=== PATIENT | male | born 1990 | race Caucasian/White ===

== ENCOUNTER 2018-01-17 06:47 | Emergency (ER) | payer OTHER ==
--- NOTE | 2018-01-17 06:56 | EDPHY ---
HPI/HX/ROS/PE/MDM Narrative: CHIEF COMPLAINT: Syncope HISTORY OF PRESENT ILLNESS: The patient is a 27 y/o male arriving via EMS after being found lying in his bathroom following a syncopal episode. Several weeks ago he had an episode of feeling lightheaded, but symptoms improved after eating food. Last night he became lightheaded; he drank some juice, but became sweaty, nauseated, and thought he would pass out. When he went to take a shower this morning, he became nauseous and felt like he might faint. He got out of the shower and sat on the toilet. He did have a syncopal episode. His fiance heard him fall, and believes the patient hit his head upon collapsing. Per his fiance, it took 3 -4 minutes before he "came to" and woke up. It then took around 30 seconds before he was able to talk again. Denies biting his tongue or losing control of his bowels. He is currently feeling "slow", shaky, and thirsty. His father has a history of an aortic dissection in his 50's. Denies tobacco, marijuana, or illicit drug use. No headache, neck pain. No chest pain, SOB, palpitations. No hx of marfans. No fever, chills, vomiting, diarrhea, urinary complaints. REVIEW OF SYSTEMS: Aside from elements discussed in the HPI, a comprehensive 10-point review of systems was reviewed and is negative. PAST MEDICAL HISTORY: Asthma SOCIAL HISTORY: Fiance at bedside, works with horses, lives in [place] VITAL SIGNS: Reviewed by me GENERAL: Well-developed, well-nourished, resting comfortably in no respiratory distress. HEENT: Contusion to forehead and left cheek. Eyes: No icterus, no injection. Mouth: dry mucous membranes. No erythema or lesions. Neck: supple with no adenopathy. LUNGS: Clear to auscultation bilaterally, no wheezes, rhonchi or rales. CARDIAC: Regular rate and rhythm, no rubs, murmurs or gallops. ABDOMEN: Soft, nontender, nondistended, bowel sounds normal. BACK: No CVA tenderness. EXTREMITIES: Abrasion to left axilla. No edema. Range of motion is normal throughout. NEURO: Alert and oriented, grossly nonfocal. SKIN: Warm and dry, no rash. PSYCHIATRIC: Normal mentation, no agitation. Portions of this note were transcribed by a ophthalmic medical technician. I personally performed a history, physical exam, medical decision making, and confirmed accuracy of information the transcribed note. ED Course: The patient is a 27 y/o male arriving via EMS after being found lying in his bathroom following a syncopal episode this morning. On exam he has a contusion to his forehead and left cheek, as well as an abrasion to his left axilla. Labs , EKG, and chest x-ray ordered; 1L IV NS administered. Patient alert, 0x3. Minor mechanism of injury. Does not meet criteria for CT scan of head. 0727: 12-LEAD EKG: Please see the full report in [facility]. My interpretation: Normal sinus rhythm with a rate of 51. 0851: Patient's labs and imaging findings are normal. Orthostatic vital signs ordered. 0857: Patient has negative orthostatics, although he is mildly hypertensive. 0912: Reassessed patient and discussed laboratory and imaging results. I have advised him to follow up with is PCP and a import/export administrator. Return precautions provided; patient is comfortable with this plan. MDM: Diff dx considered included but not limited to cardiac syncope, vasovagal syncope, dehydration, blood loss, arrhythmia, allergic reaction, seizure. - Data Points Imaging Results: Impression: No acute pulmonary disease. Dictated By: Bebeto Herrera Imaging: I viewed and interpreted images myself Laboratory Results: Laboratory Results 01/17/18 06:50 01/17/18 06:50 Medications Given: Discontinued Medications Sodium Chloride (Ns) 1,000 mls @ 0 mls/hr IV EDNOW ONE; Wide Open PRN Reason: Protocol Stop: 01/17/18 07:23 Last Admin: 01/17/18 07:52 Dose: 1,000 mls General Initial Vital Signs: Initial Vital Signs Temperature (C) 36.5 C 01/17/18 06:47 Heart Rate 55 L 01/17/18 06:47 Respiratory Rate 16 01/17/18 06:47 Blood Pressure 131/84 H 01/17/18 06:47 O2 Sat (%) 97 01/17/18 06:47 O2 Delivery Mode Room Air Allergies/Adverse Reactions: Penicillins Allergy (Verified 01/17/18 06:59) Home Medications: Medication Instructions Recorded Cleo-D 12 Hour Tablet 01/17/18 Departure - Departure Disposition: Home, Routine, Self-Care Clinical Impression: Syncope and collapse Condition: Good Instructions: Syncope (ED), Lightheadedness (ED) Additional Instructions: Follow-up with your primary doctor within 72 hours. Follow-up with a import/export administrator in the next week; you have been referred to Dr. Levine. Return to the Emergency Department for severe headache, vomiting, vision changes , confusion, fever, chest pain, shortness of breath or other concerns. Referrals: Franklin Campo MD [Medical Doctor] - As per Instructions [facility],. [Clinic] - As per Instructions Mckinley Levine MD [Medical Doctor] - As per Instructions Report Scribed for: Carolina Grant Report Scribed by: Karyna Patel Date of Report: 01/17/18 Time of Report: 06:56
[2018-01-17] MEDS ORDERED: NS 1,000 ML IV ONE (07:22)
--- NOTE | 2018-01-17 07:28 | CPEKG ---
Heart Rate: 51 RR Interval: 1176 P-R Interval: 172 QRSD Interval: 96 QT Interval: 440 QTC Interval: 406 P [place]: 72 QRS [place]: 101 T Wave [place]: 72 EKG Severity - ABNORMAL ECG - EKG Impression: SINUS RHYTHM EKG Impression: PROBABLE RIGHT VENTRICULAR HYPERTROPHY Electronically Signed By: Santhosh Self 22-Jan-2018 02:39:39
[2018-01-17 08:37] LABS: PLATELET COUNT 218 10^3/uL (150-400)
[2018-01-17 09:00] VITALS: BP 140/74
== END 2018-01-17 09:32 | disposition home or self-care (01) ==
DX: R55 Syncope and collapse (principal); J45.909 Unspecified asthma, uncomplicated; E86.9 Volume depletion, unspecified